=== PATIENT | female | born 1995 | race Two or more races ===

== ENCOUNTER 2024-09-06 10:31 | Emergency (ER) | payer MEDICAID, SELFPAY ==
[2024-09-06 10:32] VITALS: BMI 46.5
[2024-09-06 11:06] VITALS: BP 134/87; PULSE 77; RESP 19; TEMP 37.1; O2SAT 99
--- NOTE | 2024-09-06 11:22 | XR_ITS ---
Examination: Complete OB ultrasound, less than 14 weeks, transabdominal Date and time of exam: September 06, 2024 1358 hours INDICATIONS: Vaginal bleeding beginning 2 days ago, heavy or today Technique: Obstetrical ultrasound images less than 14 weeks performed via transabdominal imaging Findings: Uterus 10.4 x 5.5 x 6.6 cm Uterine body mass 11 x 7 x 9 mm No intrauterine gestation Endometrial stripe 10 mm Right ovary 5.4 x 3.7 x 3.6 cm arterial flow 3.3 x 3.0 cm cyst Left ovary 3.7 x 1.9 x 3.4 cm arterial flow 15 x 13 mm follicular cyst IMPRESSION: Small uterine body area of fibroid degeneration No intrauterine gestation Suggest follow-up transvaginal pelvic sonography as clinically warranted
--- NOTE | 2024-09-06 11:23 | PD.EDRME ---
Rapid Medical Screening Exam RME Arrival date/time: 09/06/24 10:31 29-year-old female presents emergency department with complaints of vaginal bleeding. Recent history of early . Unknown weeks of gestation. I have greeted and performed a focused initial assessment of this patient. Initial appropriate labs ordered at this time. A comprehensive ED assessment and evaluation of the patient and analysis of all test and completion of medical decision making process will be conducted by additional ED provider. Chief Complaint: Urogenital-Female Time Seen by Provider: 09/06/24 10:55 Vital signs: Vital Signs Temperature 98.7 F 09/06/24 11:06 Pulse Rate 77 09/06/24 11:06 Respiratory Rate 19 09/06/24 11:06 Blood Pressure 134/87 H 09/06/24 11:06 Pulse Oximetry (%) 99 09/06/24 11:06 Oxygen Delivery Method Room Air 09/06/24 11:06
[2024-09-06 11:30] LABS: Collection Type, Urine Clean Catch
[2024-09-06 11:39] LABS: Bacteria,Urine Rare; Bilirubin,Urine Negative (Negative); Blood,Urine 1+ (Negative); Clarity,Urine Clear (Clear/Hazy); Color,Urine Colorless (Lt Yel-Yel); Glucose, Urine Negative (Negative); Ketones,Urine Negative (Negative); Leukocyte Esterase,Urine Negative (Negative); Nitrite,Urine Negative (Negative); PH,Urine 6.5 (5.0-7.0); Protein,Urine Negative (Neg - Trace); RBC,Urine 1 /hpf (0-3); Specific Gravity,Urine 1.007 (1.001-1.035); Squamous Epithelial Cell,Urine 1 /hpf (0-5); Urobilinogen,Urine Negative mg/dL (0.0-1.0); WBC,Urine < 1 /hpf (0-5)
[2024-09-06 11:47] LABS: Basophils # (Auto) 0.1 Thou/mm3 (0.0-0.2); Basophils % (Auto) 1 % (0-2.5); Eosinophils # (Auto) 0.2 Thou/mm3 (0.0-0.5); Eosinophils % (Auto) 2 % (0-10); Hematocrit 42.7 % (36.0-46.0); Hemoglobin 14.4 g/dL (12.0-16.0); Immature Granulocytes % (Auto) 1 % (0-0); Immature Granulocytes Auto 0.07 Thou/mm3 (0.00-0.00); Lymphocytes # (Auto) 2.4 Thou/mm3 (1.0-4.8); Lymphocytes % (Auto) 19 % (10-50); Mean Corpuscular HGB Conc 33.7 g/dl (31.0-37.0); Mean Corpuscular Hemoglobin 29.1 pg (25.0-35.0); Mean Corpuscular Volume 86 fL (80-100); Monocytes # (Auto) 0.9 Thou/mm3 (0.0-0.8); Monocytes % (Auto) 7 % (0-12); Neutrophils % (Auto) 71 % (37-80); Nucleated Red Blood Cell % 0 /100 WBC (0); Platelet Count 275 Thou/mm3 (140-440); RDW Standard Deviation 40.4 fL (36.4-46.3); Red Blood Count 4.94 Miln/mm3 (4.00-5.20); White Blood Count 12.7 Thou/mm3 (3.6-11.0)
[2024-09-06 12:05] LABS: Alanine Aminotransferase 52 U/L (10-49); Albumin, Serum 4.5 gm/dL (3.5-5.0); Albumin/Globulin Ratio 1.6 (1.2-2.2); Alkaline Phosphatase 72 U/L (46-116); Anion Gap 7 (7-16); Aspartate Amino Transferase 25 U/L (0-34); BUN/Creatinine Ratio 16 Ratio (12-20); Beta HCG,Quantitative 85 mIU/mL (<5.0); Bilirubin,Total 0.4 mg/dL (0.3-1.2); Blood Urea Nitrogen 13 mg/dL (9-23); Calcium 9.4 mg/dL (8.3-10.6); Calcium (Corrected) 9.4 mg/dL (8.5-10.1); Carbon Dioxide 27.2 mMol/L (20.0-31.0); Chloride 104 mMol/L (98-107); Creatinine (Component) 0.8 mg/dL (0.6-1.3); Estimated Creatinine Clearance 100.9 mL/min (>60); Globulin 2.8 gm/dL (2.3-3.5); Glucose 98 mg/dL (74-106); Osmolality,Calculated 275 (275-295); Potassium 3.9 mMol/L (3.4-5.1); Sodium 138 mMol/L (136-145); Total Protein 7.3 gm/dL (5.7-8.2); eGFR > 60 See Note
[2024-09-06 14:18] VITALS: BP 138/74; PULSE 79; RESP 16; TEMP 36.9; O2SAT 100
--- NOTE | 2024-09-06 17:00 | XR_ITS ---
Examination: Transvaginal ultrasound of the pelvis, complete Technique: Transvaginal sonographic images pelvis performed using dodson scale imaging Exam date and time: September 06, 2024 1734 hours INDICATIONS: Vaginal bleeding beginning 2 days ago FINDINGS: Uterus 10.4 x 5.4 x 6.5 cm Endometrial stripe 17 mm No intrauterine gestation No uterine mass Right ovary 4.9 x 3.6 x 3.8 cm arterial flow 29 x 24 mm cyst Left ovary 3.9 x 2.8 cm arterial flow 14 mm follicular cyst IMPRESSION: No uterine mass or intrauterine gestation Suggest continued short-term follow-up transvaginal pelvic sonography as clinically warranted.
--- NOTE | 2024-09-06 17:08 | EDNOTE_ITS ---
ED General RME/HPI General Chief complaint: Urogenital-Female Stated complaint: VAGINAL BLEEDING x 2 DAYS, + PREG Time Seen by Provider: 09/06/24 10:55 Arrival date/time: 09/06/24 10:31 RME / HPI RME / HPI narrative: José Miguel complaint: 09/06/24 10:31 vaginal bleeding, questionable early HPI: Patient is a 29-year-old female with no significant past medical history, who presented to the ER with abnormal uterine bleeding/spotting over the last 48 hours. Patient claims to have missed her period, and believes she may be . Lab work initially showed hCG levels at 85, however follow-up ultrasound was negative for any intrauterine gestation. Patient has been having some abdominal cramping with lalito bleeding, she describes the bleeding as spotting, and no more than 1 pad a day. She has never had the symptoms in the past, but was told that she does have fibroid of the uterus. She otherwise has irregular menstrual cycles, every 2-3 months, lasting 5-7 days. LMP: June last week, which lasted for about 3 days In the ED, vitals were within normal limits. Patient's abdominal pain was 4/10 at rest, with minimal spotting. She was recently seen at [facility] 1 week ago, where UPT was positive. However patient did not have any blood work done or ultrasound to confirm . At this time, based on ultrasound results patient does not appear to be in gestation. Patient has history of a successful vaginal , she has a son who was born 3 years ago. Allergies: NKFDA Social history: Marital?Status:? Tobacco?Use:?Denies ETOH?Use:?Denies Drug?Note:?Denies Social?History?Note:?Lives?at home with and son Family history: Denies any family history of sudden cardiac , stroke or multiple losses. L Related Data Home Medications ?Medication ?Instructions ?Recorded ?Confirmed vit no.95-ferrous 1 tab PO QDAY 04/02/21 10/15/21 fumarate 28 mg-folic acid 800 mcg tablet () aspirin 81 mg tablet,delayed 81 mg PO QDAY 08/19/21 10/15/21 release metronidazole 500 mg tablet 500 mg PO BID 08/19/21 10/15/21 Previous Rx's ?Medication ?Instructions ?Recorded naproxen 500 mg tablet,delayed 500 mg PO BID PRN pain #30 tabs 08/02/22 release (EC-Naprosyn) ondansetron HCl 4 mg tablet 4 mg PO TID PRN nausea and 08/02/22 vomiting #14 tabs amoxicillin 500 mg tablet 500 mg PO TID 7 days #21 tabs 09/06/24 vitamin#30 30 mg iron-10 1 cap PO DAILY 1 month #30 caps 09/06/24 mg iron-folic acid 1 mg-omg3 capsule Allergies Allergy/AdvReac Type Severity Reaction Status Date / Time No Known Allergies Allergy Verified 09/06/24 10:34 Review of Systems Review of Systems Narrative Review of Systems: GENERAL: Denies fevers/chills or diaphoresis. HEENT: Denies headache or visual/hearing changes. Denies nasal discharge. NEURO: Denies unusual weakness or difficulty speaking. CARDIO: Denies chest pain or palpitations. PULM: Denies SOB, coughing, or wheezing. GI: Denies abdominal pain, N/V/C/D. Reports having BMs URO: Denies burning/itching/pain/urinary changes. [employer]: Spotting, abnormal uterine bleed MSK/EXT/SKIN: Denies joint/skeletal/muscle pain, issues/changes in upper or lower extremities, itchiness, or superficial pain. PSYCH: Cooperative, pleasant mood & affect. The rest of the review of systems is otherwise negative. ED Exam Narrative Physical exam: Constitutional Alert, oriented x3 and comfortable HEENT Vision grossly intact. Patent nares. Trachea midline. Respiratory Chest normal on inspection and clear to auscultation bilaterally. Cardiovascular S1 and S2 audible, RRR. No murmurs or carotid bruit. No gross JVD. Abdominal Soft and non tender to palpation in all quadrants. BS + Based P, patient should be about 7 weeks , uterus is nonpalpable. Genitourinary No bladder tenderness, no flank pain. Normal to palpation. PV spotting. Musculoskeletal Extremities tone within normal limits. No LE edema. Neurological CN II - XII grossly intact. Extremity motor and sensation grossly intact. Skin Warm, dry and intact. No apparent lesions. Psychiatric Patient has a good affect, is cooperative. Course Course Course Narrative: Transabdominal US: LT ovary small cyst. Small uterine body area of fibroid degeneration No intrauterine gestation Quality Measures none Orders Category Date Time Status Bedside Influenza A&B Antigen Test NOW Care 09/06/24 16:37 Active CXR [XR chest 1V] Stat Exams 09/06/24 16:37 Ordered US OB <= 14 weeks fetus Stat Exams 09/06/24 11:22 Completed US transvaginal Stat Exams 09/06/24 17:00 Ordered ABO/RH Type Stat Lab 09/06/24 11:36 Completed Beta HCG,Quantitative Stat Lab 09/06/24 11:36 Completed CBC Stat Lab 09/06/24 11:36 Completed Comprehensive Metabolic Panel Stat Lab 09/06/24 11:36 Completed Urinalysis Stat Lab 09/06/24 11:15 Completed Urine Culture Stat Lab 09/06/24 11:15 Received Vital Signs Vital signs: Vital Signs Temperature 98.7 F 09/06/24 11:06 Pulse Rate 77 09/06/24 11:06 Respiratory Rate 19 09/06/24 11:06 Blood Pressure 134/87 H 09/06/24 11:06 Pulse Oximetry (%) 99 09/06/24 11:06 Oxygen Delivery Method Room Air 09/06/24 11:06 MDM Patient data External records reviewed:: None Clinical information provided by:: patient and family Social determinants that could affect healthcare access:: none Patient has the following chronic illnesses:: irregular periods How is presenting disease/condition affected by chronic disease/condition?: e xacerbated by Evaluation data The following diagnostics were reviewed and interpreted by me:: lab results and radiology exam(s) Lab and/or radiology exams considered but not ordered:: CXR Interpretation Summary: Likely respiratory infection, patient does not want CXR as she is still hopeful she may be . Despite informing her of US results. She has full comprehension, but is taken aback by results and would like to bypass CXR. Will take antibiotics x5days as prescribed to cover for any infection, given leukocytosis on CBC. Medications Medications considered but not ordered:: Nil Medication administrations:: as tolerated Consultations Consultation(s) initiated? (list below): No Diagnosis Differential Diagnosis ED Complaint MDM: diverticulitis Most likely diagnosis given after review of the tests above:: Likely respiratory infection, patient does not want CXR as she is still hopeful she may be . Despite informing her of US results. She has full comprehension, but is taken aback by results and would like to bypass CXR. Will take antibiotics x5days as prescribed to cover for any infection, given leukocytosis on CBC. Admission Indicated Admission indicated?: not indicated Explain why admission is indicated or not indicated:: Likely respiratory infection, patient does not want CXR as she is still hopeful she may be . Will take antibiotics x5days as prescribed to cover for any infection, given leukocytosis on CBC. Admission Request Was there a request for admission?: No Disposition Plan Disposition Plan: Discharge Discharge Attestation Discharge Attestation: The patient and all family members were given an opportunity to ask questions and understood the discharge instructions. Discharge instructions specifically effects, indications for sooner follow up or return to the emergency department, and the expected course of current diagnosis. Patient condition: Stable Medical Decision Making MDM Narrative MDM Narrative: Patient is a 29 year old female who presented with abnormal uterine bleeding, she was under the impression that she was . However US confirms no uterine gestation. Likely respiratory infection, patient does not want CXR as she is still hopeful she may be . Despite informing her of US results. She has full comprehension, but is taken aback by results and would like to bypass CXR. Will take antibiotics x5days as prescribed to cover for any infection, given leukocytosis on CBC. Differential Diagnosis Differential Diagnosis: diverticulitis Lab Data 09/06/24 11:36 09/06/24 11:36 Labs: Lab Results 09/06/24 09/06/24 Range/Units 11:15 11:36 WBC 12.7 H (3.6-11.0) Thou/mm3 RBC 4.94 (4.00-5.20) Miln/mm3 Hgb 14.4 (12.0-16.0) g/dL Hct 42.7 (36.0-46.0) % MCV 86 (80-100) fL MCH 29.1 (25.0-35.0) pg MCHC 33.7 (31.0-37.0) g/dl RDW Std Deviation 40.4 (36.4-46.3) fL Plt Count 275 (140-440) Thou/mm3 Neut % (Auto) 71 (37-80) % Lymph % (Auto) 19 (10-50) % Coffee % (Auto) 7 (0-12) % Eos % (Auto) 2 (0-10) % Baso % (Auto) 1 (0-2.5) % Neut # (Auto) 9.0 H (1.8-7.7) Thou/mm3 Lymph # (Auto) 2.4 (1.0-4.8) Thou/mm3 Coffee # (Auto) 0.9 H (0.0-0.8) Thou/mm3 Eos # (Auto) 0.2 (0.0-0.5) Thou/mm3 Baso # (Auto) 0.1 (0.0-0.2) Thou/mm3 Immature Gran # (Auto) 0.07 H (0.00-0.00) Thou/mm3 Absolute Nucleated RBC 0.00 (0.00-0.00) Thou/mm3 Immature Gran % 1 H (0-0) % Nucleated RBC % 0 (0) /100 WBC Sodium 138 (136-145) mMol/L Potassium 3.9 (3.4-5.1) mMol/L Chloride 104 (98-107) mMol/L Carbon Dioxide 27.2 (20.0-31.0) mMol/L Anion Gap 7 (7-16) BUN 13 (9-23) mg/dL Creatinine 0.8 (0.6-1.3) mg/dL Estim Creat Clear Calc 100.9 (>60) mL/min eGFR > 60 (60 - ) See Note BUN/Creatinine Ratio 16 (12-20) Ratio Glucose 98 (74-106) mg/dL Calculated Osmolality 275 (275-295) Calcium 9.4 (8.3-10.6) mg/dL Corrected Calcium 9.4 (8.5-10.1) mg/dL Total Bilirubin 0.4 (0.3-1.2) mg/dL AST 25 (0-34) U/L ALT 52 H (10-49) U/L Alkaline Phosphatase 72 (46-116) U/L Total Protein 7.3 (5.7-8.2) gm/dL Albumin 4.5 (3.5-5.0) gm/dL Globulin 2.8 (2.3-3.5) gm/dL Albumin/Globulin Ratio 1.6 (1.2-2.2) Beta HCG, Quant 85 (<5.0) mIU/mL Ur Collection Type Clean Catch Urine Color Colorless A (Lt Yel-Yel) Urine Clarity Clear (Clear/Hazy) Urine pH 6.5 (5.0-7.0) Ur Specific [place] 1.007 (1.001-1.035) Urine Protein Negative (Neg - Trace) Urine Glucose (UA) Negative (Negative) Urine Ketones Negative (Negative) Urine Blood 1+ A (Negative) Urine Nitrite Negative (Negative) Urine Bilirubin Negative (Negative) Urine Urobilinogen (Auto) Negative (0.0-1.0) mg/dL Ur Leukocyte Esterase Negative (Negative) Urine RBC 1 (0-3) /hpf Urine WBC < 1 (0-5) /hpf Ur Squamous Epith Cells 1 (0-5) /hpf Urine Bacteria Rare (None) Blood Type A Positive Blood Bank Wristband ID Yes Discharge Plan Plan Patient Disposition: HOME (Self Care) Prescriptions/Referrals Prescriptions/Med Rec: New PNV #[id number] 30 mg iron-10 mg iron-1 mg capsule 1 cap PO DAILY 30 Days Qty: 30 0RF amoxicillin 500 mg tablet 500 mg PO TID 7 Days Qty: 21 0RF No Action metronidazole 500 mg tablet 500 mg PO BID aspirin [Aspir-81] 81 mg Tablet,Delayed Release (Dr/Ec) 81 mg PO QDAY PNV cmb#95-ferrous fumarate-FA [] 28 mg iron- 800 mcg Tablet 1 tab PO QDAY naproxen [EC-Naprosyn] 500 mg tablet,delayed release (DR/EC) 500 mg PO BID PRN (Reason: pain) Qty: 30 0RF ondansetron HCl 4 mg tablet 4 mg PO TID PRN (Reason: nausea and vomiting) Qty: 14 0RF Referrals: No Primary/Family,Physician [Primary Care Provider] - In 1 week Problem List Clinical Impression: Abnormal uterine bleeding, Degeneration of uterine fibroid Patient/Caregiver Discharge Instructions Education Materials: ED Dysfunctional Uterine Bleeding Print Language: Danish Stand Alone Forms: Ann Marie Award Info., Patient Portal Info Letter
== END 2024-09-06 18:09 | disposition home or self-care (01) ==
PROVIDERS: Nurse Practitioner Primary Care; Emergency Provider Emergency Medicine
DX: D25.9 Leiomyoma of uterus, unspecified (principal); N93.9 Abnormal uterine and vaginal bleeding, unspecified
CPT/HCPCS: 36415; 76801; 76830; 80053; 81001; 84702; 85025; 86900; 86901; 87086; 99284